=== PATIENT | female | born 1985 | race Caucasian/White ===

== ENCOUNTER 2024-09-28 09:23 | Emergency (ER) | payer OTHER, SELFPAY ==
--- NOTE | ~2024-09-28 | CT_ITS ---
EXAMINATION: CT HEAD AND FACIAL BONES WITHOUT CONTRAST CLINICAL INFORMATION: Struck in nose/forehead with horseshoe. Pain. COMPARISON: None available. TECHNIQUE: Axial noncontrast CT of the head and spiral CT of the maxillofacial bones was performed in axial plane. Sagittal, coronal, and thin section axial reformatted images were reconstructed from the axial data set. This CT examination was performed using dose optimization techniques as appropriate, variously including the following: *Automated exposure control *Adjustment of mA and/or kV according to patient size (this includes techniques or standardized protocols for targeted exams where dose is matched to indication/reason for exam; i.e. extremities or head) *Use of iterative reconstruction technique DLP: 316 mGy-cm FINDINGS: CT HEAD: There is no evidence of intracranial hemorrhage or extra-axial fluid collection. There is no mass effect, or edema. No CT evidence of acute territorial infarct. Ventricles, sulci, and cisterns are normal in size and configuration for patient age. No hydrocephalus. No midline shift. No significant white matter abnormalities. Globes and orbital contents image normally. No extracranial soft tissue abnormalities. Minimal mucosal thickening dependent maxillary antra bilaterally. Otherwise the paranasal sinuses, mastoid air cells, and tympanic cavities are normally aerated. No calvarial fractures. Extracranial soft tissues demonstrate bilateral 3 mm calcifications in the deep lobe of the parotid glands. No duct ectasia. CT FACIAL BONES: There is a probable nondisplaced left nasal bone fracture. There may be a nondisplaced right nasal bone fracture. There may be a nondisplaced nasal septal fracture of the bony nasal septum. There is left deviation with associated spurring. No additional fractures identified. There are numerous carious lesions within the maxilla and mandible, with maxillary periapical abscesses involving several teeth. CT/CT facial bones wo IV con IMPRESSION: 1. Suspect nondisplaced bilateral nasal bone fractures, and possible fracture of the nasal septum, also nondisplaced. Correlate with point tenderness. 2. No additional fractures or posttraumatic abnormalities. 3. No acute intracranial abnormality. 4. Numerous dental caries and periapical abscesses in the maxilla and mandible. Electronically signed by: Raymond Peres MD 09/28/2024 01:07 PM EDT
[2024-09-28 09:39] VITALS: BP 117/75; PULSE 75; RESP 16; TEMP 36.6; O2SAT 97; BMI 28.7
[2024-09-28 10:16] VITALS: BP 112/51; PULSE 72; RESP 16; O2SAT 97
--- NOTE | 2024-09-28 10:31 | ED.HA ---
HPI - Headache General Chief Complaint: Headache Stated Complaint: nose inj Time Seen by Provider: 09/28/24 10:14 Source: patient Mode of arrival: ambulatory Limitations: no limitations History of Present Illness ED Provider: KAREN MALDONADO PA-C HPI Narrative: 39 year old female presents to the ED today for evaluation of headache x1 month. States that while at detox 1 month ago, she was playing a game of horseshoe when she was struck in the face with a horseshoe. She did not lose consciousness. Not on AC. Endorses epistaxis x1 hour which has completely resolved. She was not medically evaluated at that time as she was not allowed to leave the detox facility. Reports continued, intermittent frontal headache. Admits to temporary resolution with Tylenol and Motrin. No history of migraine headaches. Denies fever, chills, vision changes, neck pain, scalp tenderness, jaw claudication, nausea or vomiting, difficulty breathing, epistaxis Denies injury or trauma to the head. Related Data Previous Rx's ?Medication ?Instructions ?Recorded diphenhydramine HCl 50 mg tablet 50 mg PO Q8H PRN headache #5 tabs 09/28/24 (Benadryl Allergy) ketorolac 10 mg tablet 10 mg PO Q8H 5 days #15 tabs 09/28/24 metoclopramide HCl 10 mg tablet 10 mg PO Q6H PRN headache #5 tabs 09/28/24 (Reglan) Allergies Allergy/AdvReac Type Severity Reaction Status Date / Time No Known Allergies Allergy Verified 09/28/24 09:39 Review of Systems Review of Systems: Constitutional: No fever, chills, fatigue, night sweats, weight changes ENT/Mouth: No ear pain, hearing loss, nasal congestion, sinus pain, rhinorrhea, sore throat Eyes: No eye pain, swelling, redness, vision changes, discharge, photophobia Cardio: No chest pain, palpitations, MULLER, orthopnea, peripheral edema Pulm: No SOB, cough, sputum, wheezing, dyspnea, hemoptysis GI: No nausea, vomiting, hematemesis, abdominal pain, diarrhea, constipation, hematochezia, melena : No irregular bleeding, dysuria, frequency, urgency, hesitancy, hematuria, flank pain, urinary flow changes, urinary incontinence or retention MSK: No back pain, neck pain, joint pain, myalgias Skin: No lesions, rashes Neuro: No weakness, numbness, paresthesias, LOC, dizziness, +headache Psych: No anxiety/panic, depression, SI/HI, AH/VH All other systems reviewed and are negative. [facility] Past Medical History Attestation statement: The following information was validated with the patient. Source: old records reviewed and nursing notes reviewed Social History Social History Advance Directives: No Advance Directives Information Provided: Yes Do you have a plan to hurt others: No Plan Physical Exam Vital Signs: Vital Signs: Last Vital Signs Temp 98 F 09/28/24 13:50 Pulse 56 09/28/24 13:50 Resp 16 09/28/24 13:50 BP 97/64 09/28/24 13:50 Pulse Ox 97 09/28/24 13:50 O2 Del Method Room Air 09/28/24 12:19 BMI result Body Mass Index 28.7 vital signs stable, afebrile General: Well appearing, in no acute distress. Skin: Warm, dry, intact. No rashes or lesions. Head: Normocephalic, atraumatic. no scalp tenderness or palpable temporal artery. EENT: Poor dentition w/ multiple dental caries. Hearing is intact b/l. Conjunctiva clear. PERRLA. no photophobia. EOM intact. Moist mucous membranes.?no septal hematoma. Neck: Supple without LAD. no midline cervical tenderness/ step off deformity. No meningeal signs or nuchal rigidity. Cardiac: Chest wall symmetric. RRR Lungs: Normal respiratory effort without accessory muscle use. CTA bilaterally Abdomen: Soft, non-tender, non-distended. No rebound tenderness or guarding Back: No midline spinous or paraspinal tenderness. No step off deformity. Ext: Upper and lower extremities atraumatic, without tenderness, deformity, swelling or erythema. Full ROM throughout. Neuro: AOx3. Normal speech. Strength 5/5 intact throughout. Sensation intact to light touch. NV intact distally. Reflexes 2+ bilaterally. Ambulating with steady gait. Psych: Appropriate mood and affect. Responds appropriately to questions. Course Course Course Narrative: 1330 -- on re-evaluation patient reports improvement in headache after receiving toradol, benadryl, and reglan. CT head/ face showing non displaced bilateral nasal bone fracture with possible nondisplaced fracture of nasal septum. no intracranial findings. my exam is not concerning for septal hematoma. informed patient of results. will provide her with referral to ENT. there are also incidental findings of dental carries w/ periapical abscesses. she denies any dental pain. she is afebrile. she has poor dentition however I do not appreciate any infection or abscess that warranted drainage at this time. will provide her will [facility]. Patient has remained stable throughout ED visit today. Discussed worrisome signs and symptoms and when to return to the ED. All questions answered at this time. Patient is agreeable with disposition and stable for discharge. Medications Administered Discontinued Medications Generic Name Dose Route Start Last Admin Trade Name Freq PRN Reason Stop Dose Admin Diphenhydramine HCl 50 mg 09/28/24 10:35 09/28/24 11:12 Diphenhydramine Hcl 50 Mg/Ml Vial IVPUSH 09/28/24 10:36 50 mg ONCE ONE Administration Ketorolac Tromethamine 15 mg 09/28/24 10:35 09/28/24 11:12 Ketorolac Tromethamine 15 Mg/Ml Vial IVPUSH 09/28/24 10:36 15 mg ONCE ONE Administration Metoclopramide HCl 10 mg 09/28/24 10:35 09/28/24 11:12 Metoclopramide Hcl 10 Mg/2 Ml Vial IVPUSH 09/28/24 10:36 10 mg ONCE ONE Administration Medical Decision Making Medical Decision Making MDM Narrative: 39 year old female presents to the ED today for evaluation of headache x1 month. Vital signs stable. Afebrile. She is nontoxic appearing and in NAD. Lying comortably on the exam bed. PERRLA. EOMs intact w/o entrapment. Neuro intact. No midline cervical spinous tenderness. No septal hematoma or deviation. No epistaxis. No scalp tenderness or palpable temporal artery. No meningeal signs or nuchal rigidity. Differential diagnosis includes migraine vs tension type headache, nasal fracture. No headache red flags. Neurologic exam without evidence of meningismus. No focal neurologic findings. Presentation not consistent with acute intracranial bleed including SAH (lack of risk factors). Presentation not consistent with acute [employer] infection including meningitis or brain abscess. Temporal arteritis unlikely, as is acute angle closure glaucoma given history and physical findings. Presentation not consistent with other acute, emergent causes of headache at this time. Unlikely blow out fracture, globe rupture. Plan for pain control, labs, imaging and re-evaluation. Differential Diagnosis Differential Diagnoses: The differential diagnosis associated with the presentation includes As above Admission/Observation Not indicated Lab Data MDM Lab Attestation statement: I reviewed the patient's lab results. As above Independent Interpretation I performed an independent interpretation of an: CT Scan Interpretation: CT facial bones with nasal bone fracture CT head/brain without bleed or mass Radiology Impression Discussion of test interpretation with radiology: I have reviewed the radiologist's reading. Radiologist Impression: EXAMINATION: CT HEAD AND FACIAL BONES WITHOUT CONTRAST CLINICAL INFORMATION: Struck in nose/forehead with horseshoe. Pain. COMPARISON: None available. TECHNIQUE: Axial noncontrast CT of the head and spiral CT of the maxillofacial bones was performed in axial plane. Sagittal, coronal, and thin section axial reformatted images were reconstructed from the axial data set. This CT examination was performed using dose optimization techniques as appropriate, variously including the following: *Automated exposure control *Adjustment of mA and/or kV according to patient size (this includes techniques or standardized protocols for targeted exams where dose is matched to indication/reason for exam; i.e. extremities or head) *Use of iterative reconstruction technique DLP: 316 mGy-cm FINDINGS: CT HEAD: There is no evidence of intracranial hemorrhage or extra-axial fluid collection. There is no mass effect, or edema. No CT evidence of acute territorial infarct. Ventricles, sulci, and cisterns are normal in size and configuration for patient age. No hydrocephalus. No midline shift. No significant white matter abnormalities. Globes and orbital contents image normally. No extracranial soft tissue abnormalities. Minimal mucosal thickening dependent maxillary antra bilaterally. Otherwise the paranasal sinuses, mastoid air cells, and tympanic cavities are normally aerated. No calvarial fractures. Extracranial soft tissues demonstrate bilateral 3 mm calcifications in the deep lobe of the parotid glands. No duct ectasia. CT FACIAL BONES: There is a probable nondisplaced left nasal bone fracture. There may be a nondisplaced right nasal bone fracture. There may be a nondisplaced nasal septal fracture of the bony nasal septum. There is left deviation with associated spurring. No additional fractures identified. There are numerous carious lesions within the maxilla and mandible, with maxillary periapical abscesses involving several teeth. CT/CT head/brain wo IV con IMPRESSION: 1. Suspect nondisplaced bilateral nasal bone fractures, and possible fracture of the nasal septum, also nondisplaced. Correlate with point tenderness. 2. No additional fractures or posttraumatic abnormalities. 3. No acute intracranial abnormality. 4. Numerous dental caries and periapical abscesses in the maxilla and mandible. Electronically signed by: Raymond Peres MD 09/28/2024 01:07 PM EDT Prescription Management I considered prescription management with: Pain Medication Social Determinants Patient?s care significantly limited by Social Determinants of Health including: Other Social Determinant of Health Critical Care Time Critical Care Time Critical Care Time: No Discharge Plan Discharge Clinical Impression: Headache, Closed fracture of nasal septum, Closed fracture nasal bone Patient Disposition: Home, Self-Care Instructions: Concussion (ED), Post Concussion Syndrome (ED), General Headache (ED) Additional Instructions: You have been evaluated in the Emergency Department today for headache. Your evaluation did not show evidence of medical conditions requiring emergent intervention at this time, and your pain improved with medication in the ED. The CT scan of your head does not demonstrate bleed or fracture. The CT scan of your face shows nondisplaced fracture of both nasal bones and possible nondisplaced fracture of your nasal septum. Follow up with ENT. You have been provided with a referral, call them to establish care, they will not call you. I want you to take the following 3 medications together every 6 hours as needed for headache, nausea or vomiting. ? - Reglan 10 mg - Benadryl 50 mg - Toradol (do not take this with other NSAIDs such as motrin or aleve as this can increase risk of GI bleeding) After you take these medications, lie down in a dark quiet room and try to fall asleep. ?These medications will make you sleepy, do not drive or work after taking these medications. Please follow up with your primary care physician within two days. Your CT also shows numerous dental carries. Please follow up with dentist this week. You have been provided with referral to [facility]. They are currently accepting new patients. Call them to establish care, they will not call you. [facility]: [phone] [address] [facility] [place] [address] Return to the Emergency Department if you experience worsening or uncontrolled pain, vision changes, recurrent vomiting, difficulty with normal activities, abnormal behavior, difficulty walking, numbness, weakness, or any other concerning symptoms. Prescriptions: New ketorolac 10 mg tablet 10 mg PO Q8H 5 Days Qty: 15 0RF metoclopramide HCl [Reglan] 10 mg tablet 10 mg PO Q6H PRN (Reason: headache) Qty: 5 0RF Benadryl Allergy 50 mg tablet 50 mg PO Q8H PRN (Reason: headache) Qty: 5 0RF Referrals: Darrian Dutton [Physician] - 5 days (nasal bone fractures) Interventions: ED Discharge Assessment Last Done: 09/28/24 13:50 Discharge Date/Time: 09/28/24 13:51 Print Language: Maori
[2024-09-28] MEDS: diphenhydrAMINE HCL 50 MG/ML VIAL IVPUSH (11:12)
[2024-09-28] MEDS: Metoclopramide HCl 10 MG/2 ML VIAL IVPUSH (11:12)
[2024-09-28] MEDS: Ketorolac Tromethamine 15 MG/ML VIAL IVPUSH (11:12)
[2024-09-28 12:19] VITALS: BP 97/64; PULSE 56; RESP 16; O2SAT 97
[2024-09-28 13:50] VITALS: BP 97/64; PULSE 56; RESP 16; TEMP 36.6; O2SAT 97
== END 2024-09-28 13:51 | disposition home or self-care (01) ==
PROVIDERS: Emergency Provider Emergency Medicine Emergency Medical Services
DX: S02.2XXA Fracture of nasal bones, initial encounter for closed fracture (principal); W20.8XXA Other cause of strike by thrown, projected or falling object, initial encounter; Y93.89 Activity, other specified; Y92.9 Unspecified place or not applicable; Y99.9 Unspecified external cause status; R51.9 Headache, unspecified
CPT/HCPCS: 70450; 70486; 96374; 96375; 99284; J1200; J1885; J2765

== ENCOUNTER → 2024-09-28 10:35 | Outpatient (BNV) | payer OTHER, SELFPAY | PROVIDERS: Emergency Provider Emergency Medicine Emergency Medical Services; Visit Provider Radiology Diagnostic Radiology | DX: S09.92XA Unspecified injury of nose, initial encounter (principal) | CPT/HCPCS: 70450; 70486 ==

== ENCOUNTER 2024-12-03 08:28 | Emergency (ER) | payer OTHER, SELFPAY ==
--- NOTE | ~2024-12-03 | XR_ITS ---
CLINICAL HISTORY: cough 2 view chest x-ray Comparison: None Findings: The lungs are clear. Normal size heart. No acute fracture. IMPRESSION: 1. No acute findings. This document has been electronically signed by: Kilo Whyte MD on 12/03/2024 12:08:49
--- NOTE | 2024-12-03 08:30 | ECG_ITS ---
Test Reason : CHEST PAIN Blood Pressure : / mmHG Vent. Rate : 070 BPM Atrial Rate : 070 BPM P-R Int : 154 ms QRS Dur : 078 ms QT Int : 380 ms P-R-T Axes : 064 062 054 degrees QTc Int : 410 ms Normal sinus rhythm Normal ECG No previous ECGs available Referred By: Generic ED Physician Electronically Signed By:EDWARD NEELY MD
[2024-12-03 08:50] VITALS: BP 109/61; PULSE 79; RESP 18; TEMP 36.7; O2SAT 98; BMI 27.5
[2024-12-03 09:37] LABS: Influenza A PCR NEGATIVE (Negative); Influenza B PCR NEGATIVE (Negative); Resp Syncy Virus RNA Qual PCR NEGATIVE (Negative); SARS COV2 PCR INHOUSE NEGATIVE (Negative)
--- NOTE | 2024-12-03 10:17 | ED_ITS ---
HPI - General Adult General Chief complaint: General Medical Stated complaint: chest pain and med refill Time Seen by Provider: 12/03/24 10:04 Source: patient and family Mode of arrival: ambulatory Limitations: no limitations History of Present Illness ED Provider: Katelyn Amin APRN HPI narrative: 39 yo female with a history of OUD currently on suboxone 4mg BID here with complaints of chest pain x 2 days which is worsened with cough, breathing and movement of trunk. No diff breathing, fevers, chills, leg swelling/leg pain, vomiting, diarrhea. No recent travel or sick contact. No estrogen or OCP use. Also has not had her suboxone since Wednesday evening. She did speak to the pharmacy and reportedly she will be able to pick it up tonight before they close. She is seeking a dose today. Related Data Previous Rx's ?Medication ?Instructions ?Recorded diphenhydramine HCl 50 mg tablet 50 mg PO Q8H PRN headache #5 tabs 09/28/24 (Benadryl Allergy) ketorolac 10 mg tablet 10 mg PO Q8H 5 days #15 tabs 09/28/24 metoclopramide HCl 10 mg tablet 10 mg PO Q6H PRN headache #5 tabs 09/28/24 (Reglan) Allergies Allergy/AdvReac Type Severity Reaction Status Date / Time No Known Allergies Allergy Verified 12/03/24 08:52 Review of Systems 2 Review of Systems: Yes all other systems are reviewed and are negative Constitutional: Constitutional: Reports no additional constitutional complaints, Denies body ache(s), Denies chills, Denies fever(s), Denies headache(s) and Denies weakness Eyes: Eyes: Reports no additional eye complaints and Denies change in vision ENT: Reports system reviewed and no additional complaints, except as documented, Denies dizziness, Denies headache(s), Denies nasal congestion, Denies nasal discharge and Denies neck pain Cardiovascular: Cardiovascular: Reports no additional cardiovascular complaints, Reports chest pain, Denies leg edema and Denies dyspnea Respiratory: Respiratory: Reports no additional respiratory complaints, Reports cough and Denies dyspnea Gastrointestinal: Gastrointestinal: Reports no additional gastrointestinal complaints, Denies abdominal pain, Denies diarrhea, Denies nausea and Denies vomiting Genitourinary: Genitourinary: Reports no additional female genitourinary complaints and Denies urinary incontinence Musculoskeletal: Musculoskeletal: Reports no additional musculoskeletal complaints, Denies back pain, Denies arthralgias, Denies joint swelling, Denies neck pain, Denies numbness and Denies tingling Integumentary/Breasts: Skin/Breast: Reports system reviewed and no additional complaints, except as docu and Denies rash Neurologic: Reports system reviewed and no additional complaints, except as documented, Denies Abnormal speech present, Denies dizziness, Denies headache(s), Denies numbness, Denies tingling and Denies weakness [facility] Past Medical History Attestation statement: The following information was validated with the patient. Source: old records reviewed and nursing notes reviewed Social History Social History Advance Directives: No Advance Directives Information Provided: No Physical Exam ED Vital Signs: Vital Signs - 24 hr 12/03/24 08:50 Temperature 98.1 F Pulse Rate 79 Respiratory Rate 18 Blood Pressure 109/61 Pulse Oximetry 98 Oxygen Delivery Method Room Air BMI result Body Mass Index 27.5 Const General: cooperative, healthy appearing, comfortable and no acute distress Orientation/consciousness: patient oriented x3 Limitations: no limitations HENMT Head: Yes normal to inspection Ears: hearing grossly normal bilaterally General nose exam: Normal external nose present Face and sinus: Yes normal facial exam Mouth: Normal oral and palatal mucosa present Throat: Yes posterior oropharynx normal Eyes General: appearance normal, both eyes and all related structures Pupils: Equal, round and reactive pupils present Neck Neck: Yes normal visual inspection Chest Chest palpation & inspection: normal inspection of the chest and tenderness sternum Resp Effort & Inspection: normal respiratory effort Auscultation: clear to auscultation bilaterally Cardio Rate: regular rate Rhythm: regular rhythm Peripheral pulses: Peripheral pulses 2+ throughout GI Inspection: Yes normal to inspection Palpation (GI): Soft to palpation and nontender Auscultation: normal bowel sounds Back/Spine/Pelvis Thoracic/Lumbar Spine: thoracic and lumbar spine normal to inspection Skin General skin exam: no rashes or lesions noted Neuro General: patient oriented x3, no focal motor deficits and normal sensation to monofilament Cranial nerves: Yes Equal, round and reactive pupils present Cognition (Neuro): normal cognition Speech: No Abnormal speech present Gait exam (Neuro): Normal gait present Motor exam (neuro): 5/5 motor strength present throughout Extrem General: Yes normal to inspection, Yes no pedal edema and Yes no calf tenderness Course Course Course Narrative: Patient is a difficult stick and we were only able to get a CMP and troponin on her. I was most concerned about her troponin level and I do not feel that she requires a CBC or PT INR at this time. Her troponin was negative. She has had symptoms for several days and in conjunction with a nonischemic EKG I doubt ACS. Her viral testing is negative. She was dose with 4 mg of Suboxone. I discussed with her that she likely has costochondritis and she may take Motrin or Tylenol for pain as needed. Reviewed worrisome signs and symptoms of when to return to the emergency room. Comfortable plan for discharge home. Medications Administered Discontinued Medications Generic Name Dose Route Start Last Admin Trade Name Wali PRN Reason Stop Dose Admin Buprenorphine/Naloxone 1 film 12/03/24 10:16 12/03/24 11:04 Buprenorphine/Naloxone 4/1 Mg Film SUBLINGUAL 12/03/24 10:17 1 film ONCE ONE Administration Medical Decision Making Medical Decision Making MDM Narrative: 39 yo female with a history of OUD currently on suboxone 4mg BID here with complaints of chest pain x 2 days which is worsened with cough, breathing and movement of trunk. No diff breathing, fevers, chills, leg swelling/leg pain, vomiting, diarrhea. No recent travel or sick contact. No estrogen or OCP use. Also has not had her suboxone since Wednesday evening. She did speak to the pharmacy and reportedly she will be able to pick it up tonight before they close. She is seeking a dose today. Chest pain is reproducible. Seems more MS. VSS Will obtain EKG, CXR, labs, viral dosing Will give dose of suboxone Differential Diagnosis Differential Diagnoses: The differential diagnosis associated with the presentation includes costochondritis ACS-see course PE-PERC 0, less likely dissection-less likely with gradual onset Admission/Observation Consideration of admission/observation: Escalation of care including admission/observation considered see course of care Lab Data [facility] [place] Lab Attestation statement: I reviewed the patient's lab results. 12/03/24 10:47 Labs: Lab Results 12/03/24 12/03/24 Range/Units 08:55 10:47 Sodium 137 (135-145) mmol/L Potassium 4.5 (3.3-5.1) mmol/L Chloride 108 (96-108) mmol/L Carbon Dioxide 19 L (22-29) mmol/L Anion Gap 15 (12-20) BUN 12 (9-16) mg/dL Creatinine 0.82 (0.5-1.4) mg/dL Estim Creat Clear Calc 90.0 Estimated GFR > 60 Random Glucose 98 (60-115) mg/dL Calcium 9.2 (8.4-10.2) mg/dL Total Bilirubin 0.6 (0.0-1.0) mg/dL Direct Bilirubin 0.2 (0.0-0.5) mg/dL AST 23 (5-31) U/L ALT 18 (0-31) U/L Alkaline Phosphatase 51 (39-117) U/L Troponin I High Sens < 2.7 (<3.5-17.0) ng/L Total Protein 7.6 (6.5-8.0) g/dL Albumin 4.1 (3.5-5.0) g/dL Urine Test NEGATIVE (NEGATIVE) Influenza Type A (PCR) NEGATIVE (Negative) Influenza Type B (PCR) NEGATIVE (Negative) RSV RNA Qual (PCR) NEGATIVE (Negative) SARS-CoV-2 RNA (RT-PCR) NEGATIVE (Negative) Independent Interpretation I performed an independent interpretation of an: EKG and Plain X-Ray Interpretation: I independently viewed the EKG which shows normal sinus rhythm with a rate of 70, normal UT, normal QRS no acute I independently viewed the chest x-ray and agree with the radiology report Radiology Impression Discussion of test interpretation with radiology: I have reviewed the radiologist's reading. Radiologist Impression: [place] [id number] XRay Report Signed Patient: Bethany Pratt MR#: [id number] : 1985 Acct:[id number] Age/Sex: 39 / F ADM Date: 12/03/24 Loc: .ED Attending Dr: Ordering Physician: Lorene Caba MD Date of Service: 12/03/24 Procedure(s): XR chest 2V Accession Number(s): [id number] cc: Lorene Caba MD; Physician,None ~ CLINICAL HISTORY: cough 2 view chest x-ray Comparison: None Findings: The lungs are clear. Normal size heart. No acute fracture. IMPRESSION: 1. No acute findings. This document has been electronically signed by: Kilo Whyte MD on 12/03/2024 12:08:49 Discharge Plan Discharge Clinical Impression: Chest wall pain, Medication refill Patient Disposition: Home, Self-Care Instructions: Chest Wall Pain (ED), Medicine Refill (ED) Additional Instructions: Your EKG was normal. Your heart enzyme level which is call the troponin was negative. Your chest x-ray shows no signs of infection. Your testing for flu, COVID, RSV are negative. You did receive a 1 time dose of Suboxone 4 mg while you are here in the emergency room. 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 Return here for any worsening symptoms Prescriptions: No Action ketorolac 10 mg tablet 10 mg PO Q8H 5 Days Qty: 15 0RF metoclopramide HCl [Reglan] 10 mg tablet 10 mg PO Q6H PRN (Reason: headache) Qty: 5 0RF Benadryl Allergy 50 mg tablet 50 mg PO Q8H PRN (Reason: headache) Qty: 5 0RF Referrals: Physician,None [Primary Care Provider] - 1 week Print Language: Tanzanian
[2024-12-03 10:56] LABS: UPreg QC Valid YES; Urine Pregnancy NEGATIVE (NEGATIVE)
[2024-12-03] MEDS: Buprenorphine/Naloxone 4/1 mg FILM 1 FILM SUBLINGUAL (11:04)
[2024-12-03 11:15] LABS: Troponin-I High Sensitivity < 2.7 ng/L (<3.5-17.0)
[2024-12-03 11:23] LABS: Alanine Aminotransferase 18 U/L (0-31); Albumin Level 4.1 g/dL (3.5-5.0); Alkaline Phosphatase 51 U/L (39-117); Anion Gap 15 (12-20); Aspartate Amino Transferase 23 U/L (5-31); Bilirubin Direct 0.2 mg/dL (0.0-0.5); Bilirubin Total 0.6 mg/dL (0.0-1.0); Blood Urea Nitrogen 12 mg/dL (9-16); Calcium 9.2 mg/dL (8.4-10.2); Carbon Dioxide 19 mmol/L (22-29); Chloride 108 mmol/L (96-108); Estimated Glomerular Filt Rate > 60; Glucose Random 98 mg/dL (60-115); Potassium 4.5 mmol/L (3.3-5.1); Sodium 137 mmol/L (135-145); Total Protein 7.6 g/dL (6.5-8.0)
--- NOTE | 2024-12-03 12:06 | MHC.EDTECH ---
This pct along with another pct attempted to draw labs on patient with no success. Patient states shes a difficult stick and that usually the doctor has to do an ultrasound to obtain labs, RN Aware
[2024-12-03 12:17] VITALS: BP 95/57; PULSE 64; RESP 20; TEMP 36.1; O2SAT 95
== END 2024-12-03 12:18 | disposition home or self-care (01) ==
PROVIDERS: Nurse Practitioner Family; Emergency Provider Emergency Medicine
DX: R07.89 Other chest pain (principal); R05.9 Cough, unspecified; Z76.0 Encounter for issue of repeat prescription; Z79.899 Other long term (current) drug therapy; Z03.818 Encounter for observation for suspected exposure to other biological agents ruled out
CPT/HCPCS: 0241U; 36415; 71046; 80048; 80076; 81025; 84484; 93005; 99283

== ENCOUNTER → 2024-12-03 08:30 | Outpatient (BNV) | payer OTHER, SELFPAY | PROVIDERS: Emergency Provider Emergency Medicine; Visit Provider Internal Medicine Cardiovascular Disease | DX: R07.9 Chest pain, unspecified (principal) | CPT/HCPCS: 93010 ==

== ENCOUNTER → 2024-12-03 08:53 | Outpatient (BNV) | payer OTHER, SELFPAY | PROVIDERS: Emergency Provider Emergency Medicine; Visit Provider Specialist | DX: R05.9 Cough, unspecified (principal) | CPT/HCPCS: 71046 ==